=== PATIENT | male | born 1995 | race Caucasian/White ===

== ENCOUNTER 2021-06-08 22:24 | Emergency (ER) | payer BC, OTHER ==
[2021-06-09 00:31] LABS: BUN/CREATININE RATIO 18 (0-10)
[2021-06-09 00:44] LABS: RED BLOOD COUNT 5.91 M/UL (4.20-5.50); WHITE BLOOD COUNT 18.2 K/UL (4.5-11.0)
[2021-06-09] MEDS ORDERED: ZOFRAN4 MG PO (05:32)
== END 2021-06-09 05:40 | disposition home or self-care (01) ==
LOC: ER1 22:24
PROVIDERS: Physician Assistant Medical
DX: I10 Essential (primary) hypertension (principal); R11.2 Nausea with vomiting, unspecified; Z88.8 Allergy status to other drugs, medicaments and biological substances
CPT/HCPCS: 71045; 80053; 81001; 82550; 82553; 83690; 83874; 84484; 85025; 93005; 96374; 99284; J2405; J7030; Q9967